=== PATIENT | female | born 1950 | race Caucasian/White ===

== ENCOUNTER → 2023-01-22 | Outpatient (CLI) | payer MEDICARE, BC ==
[2023-01-24 11:58] LABS: Stool Occult Bld Immuno 1 Negative (NEGATIVE)
== END | disposition home or self-care (01) ==
LOC: LAB SHORT 23:50 → LAB 23:50
PROVIDERS: Physician Assistant
DX: Z12.11 Encounter for screening for malignant neoplasm of colon (principal)
CPT/HCPCS: G0328